=== PATIENT | male | born 1960 | race Caucasian/White ===

== ENCOUNTER 2022-07-10 05:32 | Inpatient (IN) ==
[2022-07-06 11:32] LABS: Basophils % 0.1 % (0.0-0.8); Eosinophils # 0.1 10*3/uL (0.0-0.87); Eosinophils % 0.7 % (0.00-10.9); Hematocrit 44.2 VOL% (42.0-52.0); Hemoglobin 15.2 GM/DL (14.0-18.0); Immature Granulocytes % 0.6 %; Immature Granulocytes Absolute 0.04 #; Lymphocytes # 1.8 10*3/uL (1.4-4.0); Lymphocytes % 26.5 % (21.2-54.2); Mean Corpuscular HGB Conc 34.4 GM/DL (32-36); Mean Corpuscular Volume 88.4 FL (87-102); Mean Platelet Volume 8.4 FL (9.6-12.0); Monocytes # 0.4 10*3/uL (0.11-0.8); Monocytes % 6.2 % (1.7-12.7); Neutrophils % 65.9 % (38.7-73.9); Platelet Count 222 T/CUMM (130-400); Red Cell Distribution Width 12.5 % (9.3-17.3); White Blood Count 6.8 T/CUMM (4-12)
[2022-07-06 12:10] LABS: Albumin 4.1 G/DL (3.4-5.0); Calcium 9.2 MG/DL (8.5-10.1); Potassium 4.4 MMOL/L (3.5-5.1); Total Protein 8.1 G/DL (6.4-8.2)
[~2022-07-10 05:32] MED LIST: LACTATED RINGERS 1,000 ML IV SCH
[2022-07-10] MEDS ORDERED: GENTAMICIN 80 MG/2 ML VIAL ONE (05:43)
[2022-07-10] MEDS ORDERED: GENTAMICIN INJ 160 MG in SODIUM CHLORIDE 0.9% 100 ML IV STA (06:27)
[2022-07-10] MEDS ORDERED: LACTATED RINGERS 1,000 ML IV ONE ×2 (06:28→11:38)
[2022-07-10] MEDS ORDERED: propofoL 200 MG/20 ML VIAL IV ONE (06:28)
[2022-07-10] MEDS ORDERED: SEVOFLURANE 1 UNIT/15 MINUTE INH ONE ×9 (06:28→11:38)
[2022-07-10] MEDS ORDERED: SUCCINYLCHOLINE 200 MG/10 ML VIAL ONE (06:28)
[2022-07-10] MEDS ORDERED: ROCURONIUM 50 MG/5 ML VIAL IV ONE ×3 (06:28→09:39)
[2022-07-10] MEDS ORDERED: LIDOCAINE 2% 5 ML VIAL ONE (06:28)
[2022-07-10] MEDS ORDERED: MIDAZOLAM 2 MG/2 ML VIAL ONE ×2 (06:29→07:05)
[2022-07-10] MEDS ORDERED: fentaNYL 100 MCG/2 ML VIAL ONE (06:29)
[2022-07-10] MEDS ORDERED: ROPIVACAINE 0.5% 30 ML VIAL ONE (06:32)
[2022-07-10] MEDS ORDERED: buprenorphine HCL 0.3 MG/ML VIAL ONE (06:36)
[2022-07-10] MEDS ORDERED: ePHEDrine 50 MG/ML VIAL ONE (07:41)
[2022-07-10] MEDS ORDERED: CLINDAMYCIN INJ 600 MG/50 ML PREMIX IV ONE (07:47)
[2022-07-10] MEDS ORDERED: ACETAMINOPHEN INJ 1,000 MG/100 ML VIAL IV ONE (09:20)
[2022-07-10] MEDS ORDERED: PHENYLEPHRINE 1 MG/10 ML SYRINGE IV ONE ×2 (09:20→11:20)
[2022-07-10] MEDS ORDERED: ONDANSETRON 4 MG/2 ML VIAL ONE (09:21)
[2022-07-10] MEDS ORDERED: DEXAMETHASONE 4 MG/1 ML VIAL ONE ×2 (11:18)
[2022-07-10] MEDS ORDERED: NEOSTIGMINE 10 MG/10 ML VIAL ONE (11:30)
[2022-07-10] MEDS ORDERED: GLYCOPYRROLATE 0.4 MG/2 ML VIAL ONE (11:30)
[2022-07-10] MEDS ORDERED: LACTULOSE 20 GM/30 ML UDCUP PO PRN (11:40)
[2022-07-10] MEDS ORDERED: SIMETHICONE CHEW 125 MG TABLET PO PRN (11:40)
[2022-07-10] MEDS ORDERED: HYDROmorphone 1 MG/1 ML SYRINGE IV PRN ×2 (11:40→12:40)
[2022-07-10] MEDS ORDERED: diphenhydrAMINE 50 MG/1 ML VIAL IV PRN (11:40)
[2022-07-10] MEDS ORDERED: PROMETHAZINE 25 MG/1 ML VIAL IM PRN (11:40)
[2022-07-10] MEDS ORDERED: ONDANSETRON 4 MG/2 ML VIAL IV PRN ×2 (11:40→12:40)
[2022-07-10 12:20] LABS: Mucus,Urine Occasional /LPF (Occasional); RBC,Urine 2 /HPF (0-4)
[2022-07-10 12:34] LABS: Protein,Urine Negative (Negative); Urine Appearance Clear (Clear); Urine Color Yellow (Yellow); Urine Specific Gravity 1.015 (1.001-1.035)
[2022-07-10 12:35] LABS: Bilirubin,Urine Negative (Negative); Blood, Urine Trace mg/dL (Negative); Glucose,Urine (UA) Negative (Negative); Ketones,Urine Negative (Negative); Nitrite,Urine Negative (Negative); Urine Urobilinogen 0.2 eU/dL (<2.0)
[2022-07-10] MEDS ORDERED: MEPERIDINE 25 MG/1 ML VIAL IV PRN (12:40)
[2022-07-10] MEDS ORDERED: PROMETHAZINE INJ 25 MG in SODIUM CHLORIDE 0.9% 50 ML IV PRN (12:40)
[2022-07-10 12:53] LABS: Basophils % 0.1 % (0.0-0.8); Eosinophils # 0.1 10*3/uL (0.0-0.87); Eosinophils % 0.3 % (0.00-10.9); Hematocrit 38.9 VOL% (42.0-52.0); Hemoglobin 13.4 GM/DL (14.0-18.0); Immature Granulocytes % 0.7 %; Immature Granulocytes Absolute 0.11 #; Lymphocytes # 1.5 10*3/uL (1.4-4.0); Lymphocytes % 9.7 % (21.2-54.2); Mean Corpuscular HGB Conc 34.4 GM/DL (32-36); Mean Corpuscular Volume 87.8 FL (87-102); Mean Platelet Volume 8.9 FL (9.6-12.0); Monocytes # 0.7 10*3/uL (0.11-0.8); Monocytes % 4.3 % (1.7-12.7); Neutrophils % 84.9 % (38.7-73.9); Platelet Count 252 T/CUMM (130-400); Red Blood Count 4.43 MC/CUMM (3.8-5.5); Red Cell Distribution Width 12.4 % (9.3-17.3); White Blood Count 15.6 T/CUMM (4-12)
[2022-07-10 13:11] LABS: Calcium 8.1 MG/DL (8.5-10.1)
[2022-07-10 13:12] LABS: Osmolality,Calculated 276.5 MOS/KG (273-304); Potassium 3.5 MMOL/L (3.5-5.1)
[2022-07-10] MEDS: SODIUM CHLORIDE 0.9% 1,000 ML IV SCH ×2 (14:00→23:24)
[2022-07-10] MEDS: ACETAMINOPHEN 325 MG TABLET PO SCH ×2 (14:12→17:22)
[2022-07-10] MEDS: OXYBUTYNIN 5 MG TABLET PO SCH ×2 (14:31→21:55)
[2022-07-10] MEDS: GABAPENTIN 100 MG CAPSULE PO SCH (21:46)
[2022-07-10] MEDS: DOCUSATE SODIUM 100 MG CAPSULE PO SCH (21:46)
[2022-07-10] MEDS: ALVIMOPAN 12 MG CAPSULE PO SCH (21:46)
[2022-07-10] MEDS: oxyCODONE/ACETAMINOPHEN 5-325 MG TABLET PO PRN (21:56)
[2022-07-11] MEDS: ACETAMINOPHEN 325 MG TABLET PO SCH ×4 (00:15→17:31)
[2022-07-11 05:30] LABS: Basophils % 0.1 % (0.0-0.8); Hematocrit 37.2 VOL% (42.0-52.0); Immature Granulocytes % 0.5 %; Immature Granulocytes Absolute 0.06 #; Lymphocytes % 8.8 % (21.2-54.2); Mean Corpuscular HGB Conc 34.9 GM/DL (32-36); Mean Corpuscular Volume 88.6 FL (87-102); Mean Platelet Volume 9.2 FL (9.6-12.0); Monocytes # 0.8 10*3/uL (0.11-0.8); Monocytes % 6.9 % (1.7-12.7); Neutrophils % 83.7 % (38.7-73.9); Platelet Count 244 T/CUMM (130-400); Red Cell Distribution Width 12.4 % (9.3-17.3); White Blood Count 11.2 T/CUMM (4-12)
[2022-07-11] MEDS: SODIUM CHLORIDE 0.9% 1,000 ML IV SCH (05:46)
[2022-07-11 05:54] LABS: Calcium 8.3 MG/DL (8.5-10.1); Osmolality,Calculated 282.3 MOS/KG (273-304); Potassium 3.7 MMOL/L (3.5-5.1)
[2022-07-11] MEDS: oxyCODONE/ACETAMINOPHEN 5-325 MG TABLET PO PRN (07:41)
[2022-07-11] MEDS: amLODIPine 5 MG TABLET PO SCH (09:53)
[2022-07-11] MEDS: LEVOFLOXACIN 500 MG TABLET PO SCH (09:53)
[2022-07-11] MEDS: DOCUSATE SODIUM 100 MG CAPSULE PO SCH ×2 (09:53→21:37)
[2022-07-11] MEDS: OXYBUTYNIN 5 MG TABLET PO SCH ×3 (09:54→21:37)
[2022-07-11] MEDS: guaiFENesin 200 MG/10 ML UDCUP PO PRN ×2 (11:01→17:31)
[2022-07-11] MEDS: ALVIMOPAN 12 MG CAPSULE PO SCH ×2 (12:30→21:37)
[2022-07-11] MEDS: GABAPENTIN 100 MG CAPSULE PO SCH (21:37)
[2022-07-12] MEDS: ACETAMINOPHEN 325 MG TABLET PO SCH ×2 (00:06→05:36)
[2022-07-12 05:38] LABS: Basophils % 0.3 % (0.0-0.8); Eosinophils # 0.1 10*3/uL (0.0-0.87); Eosinophils % 0.9 % (0.00-10.9); Hematocrit 38.5 VOL% (42.0-52.0); Immature Granulocytes % 0.6 %; Immature Granulocytes Absolute 0.06 #; Lymphocytes # 2.1 10*3/uL (1.4-4.0); Lymphocytes % 22.5 % (21.2-54.2); Mean Corpuscular HGB Conc 33.8 GM/DL (32-36); Mean Corpuscular Volume 91.7 FL (87-102); Mean Platelet Volume 9.5 FL (9.6-12.0); Monocytes # 0.8 10*3/uL (0.11-0.8); Monocytes % 8.5 % (1.7-12.7); Neutrophils % 67.2 % (38.7-73.9); Platelet Count 239 T/CUMM (130-400); Red Cell Distribution Width 12.8 % (9.3-17.3); White Blood Count 9.3 T/CUMM (4-12)
[2022-07-12 05:57] LABS: Osmolality,Calculated 283.1 MOS/KG (273-304); Potassium 3.4 MMOL/L (3.5-5.1)
[2022-07-12] MEDS ORDERED: POTASSIUM CHLORIDE 20 MEQ TABLET PO ONE (07:30)
[2022-07-12 08:38] VITALS: BP 135/70
[2022-07-12] MEDS: ALVIMOPAN 12 MG CAPSULE PO SCH (09:25)
[2022-07-12] MEDS: OXYBUTYNIN 5 MG TABLET PO SCH (09:25)
[2022-07-12] MEDS: DOCUSATE SODIUM 100 MG CAPSULE PO SCH (09:25)
[2022-07-12] MEDS: LEVOFLOXACIN 500 MG TABLET PO SCH (09:25)
[2022-07-12] MEDS: amLODIPine 5 MG TABLET PO SCH (09:25)
== END 2022-07-12 11:55 | disposition home or self-care (01) | DRG 708 ==
LOC: N.SDSINP 05:32 → N.3E 13:39
PROVIDERS: ADMIT Surgery; ATTEND Surgery